=== PATIENT | male | born 1990 | race African-American/Black ===

== ENCOUNTER 2018-02-17 12:01 | Emergency (ER) | payer SELFPAY | END 2018-02-17 13:39 | disposition home or self-care (01) | LOC: D.ER 12:01 | DX: S29.012A Strain of muscle and tendon of back wall of thorax, initial encounter (principal); X58.XXXA Exposure to other specified factors, initial encounter; Y93.89 Activity, other specified; Y92.019 Unspecified place in single-family (private) house as the place of occurrence of the external cause; J45.909 Unspecified asthma, uncomplicated; G20 Parkinson's disease; F17.200 Nicotine dependence, unspecified, uncomplicated ==

== ENCOUNTER 2018-06-11 11:25 | Emergency (ER) | payer MEDICAID ==
[~2018-06-11] VITALS: Ht 170.2 cm; Wt 100.0 kg
[2018-06-11 11:41] VITALS: Ht 170.2 cm; Wt 100.0 kg
[2018-06-11] MEDS ORDERED: PROAIR HFA8.5 GM INH (11:44)
[2018-06-11] MEDS ORDERED: CLEOCIN HCL300 MG PO (14:00)
[2018-06-11] MEDS ORDERED: PREDNISONE20 MG PO (14:00)
[2018-06-11] MEDS ORDERED: TORADOL10 MG PO (14:01)
[2018-06-11 14:30] VITALS: BP 139/90
== END 2018-06-11 14:32 | disposition home or self-care (01) ==
LOC: D.ER 11:25
DX: J02.9 Acute pharyngitis, unspecified (principal); R05 Cough; E11.9 Type 2 diabetes mellitus without complications; K21.9 Gastro-esophageal reflux disease without esophagitis; F17.200 Nicotine dependence, unspecified, uncomplicated

== ENCOUNTER 2018-11-15 16:16 | Emergency (ER) | payer MEDICAID ==
[~2018-11-15] VITALS: Ht 170.2 cm; Wt 97.7 kg
[~2018-11-15 16:16] MED LIST: CLEOCIN HCL300 MG PO; PREDNISONE20 MG PO; PROAIR HFA8.5 GM INH; TORADOL10 MG PO
[2018-11-15 16:30] VITALS: Ht 170.2 cm; Wt 97.7 kg
[2018-11-15] MEDS ORDERED: ACETAMINOPHEN500 M1 PO (18:53)
[2018-11-15] MEDS ORDERED: ZPAK PO (18:53)
[2018-11-15 19:20] VITALS: BP 139/92
== END 2018-11-15 19:20 | disposition home or self-care (01) ==
LOC: D.ER 16:16
DX: J06.9 Acute upper respiratory infection, unspecified (principal); M79.18 Myalgia, other site; R50.9 Fever, unspecified; G20 Parkinson's disease

== ENCOUNTER 2021-04-14 14:01 | Emergency (ER) | payer OTHER ==
[~2021-04-14] VITALS: Ht 170.2 cm; Wt 100.0 kg
[~2021-04-14 14:01] MED LIST changes: +ACETAMINOPHEN500 M1 PO; +ZPAK PO
[2021-04-14 14:13] VITALS: BP 158/88; Ht 170.2 cm; Wt 100.0 kg
[2021-04-14] MEDS ORDERED: NAPROSYN500 MG PO (15:01)
[2021-04-14] MEDS ORDERED: METHOCARBAMOL500 MG PO (15:01)
[2021-04-14] MEDS ORDERED: ARTHROTEC EC 71 EACH PO (15:24)
== END 2021-04-14 15:30 | disposition home or self-care (01) ==
LOC: D.ER 14:01
DX: S39.012A Strain of muscle, fascia and tendon of lower back, initial encounter (principal); S16.1XXA Strain of muscle, fascia and tendon at neck level, initial encounter; S09.90XA Unspecified injury of head, initial encounter; V89.2XXA Person injured in unspecified motor-vehicle accident, traffic, initial encounter; Y93.9 Activity, unspecified; Y92.9 Unspecified place or not applicable; G20 Parkinson's disease